=== PATIENT | male | born 1935 | race Caucasian/White ===

== ENCOUNTER 2017-01-19 18:21 | Inpatient (IN) | payer MEDICARE, OTHER ==
[~2017-01-19] VITALS: Ht 172.7 cm; Wt 76.5 kg
[2017-01-19] MEDS ORDERED: PRESCAP PO (18:42)
[2017-01-19] MEDS ORDERED: DIGO0.12 PO (18:42)
[2017-01-19] MEDS ORDERED: NITR0.4S14 SL (18:42)
[2017-01-19] MEDS ORDERED: COUM2.5T11 PO (18:42)
[2017-01-19] MEDS ORDERED: METR500T10 PO (18:42)
[2017-01-19] MEDS ORDERED: SIMV40TA2 PO (18:42)
[2017-01-19] MEDS ORDERED: PROSCAP PO (18:42)
[2017-01-19] MEDS ORDERED: imdur PO (18:42)
[2017-01-19] MEDS ORDERED: OMEP40CA2 PO (18:42)
[2017-01-19] MEDS ORDERED: MULT1TAB10 PO (18:42)
[2017-01-19] MEDS ORDERED: CIPR500T3 PO (18:42)
[2017-01-19] MEDS ORDERED: PRED5TA PO (18:42)
[2017-01-19] MEDS ORDERED: CORE25TA PO (18:42)
[2017-01-19] MEDS ORDERED: ADV250INH INH (18:42)
[2017-01-19] MEDS ORDERED: ONDANSETRON 4MG/2ML VIAL (J2405) IV ONE (19:15)
[2017-01-19] MEDS ORDERED: NS 500 ML IV ONE (19:15)
[2017-01-19] MEDS: MORPHINE 4 MG/ML 1ML SYRINGE IV PRN ×2 (19:33→20:05)
[2017-01-19 19:39] LABS: BASO % 0.3 % (0.0-1.0); EOS % 0.2 % (0.0-3.0); LARGE UNSTAINED CELL # 0.2 K/mm3 (0.0-0.4); LARGE UNSTAINED CELL % 2.1 % (0.0-4.0); LYMPH # 1.2 K/mm3 (1.5-4.5); LYMPH % 12.2 % (24.0-44.0); MEAN CORPUSCULAR VOLUME 103.1 fl (80.0-96.0); MONO # 0.4 K/mm3 (0.0-0.8); MONO % 4.2 % (0.0-5.0); NEUTROPHILS # 6.8 K/mm3 (1.8-7.7); NEUTROPHILS % 80.8 % (36.0-66.0); PLATELET COUNT, AUTOMATED 557 k/mm3 (150-450); RED CELL DISTRIBUTION WIDTH 15.2 % (11.5-14.5); WHITE BLOOD COUNT 8.5 K/mm3 (4.0-10.0)
[2017-01-19 20:01] LABS: ALBUMIN 3.4 GM/DL (3.2-5.2); ALBUMIN/GLOBULIN RATIO 0.92 (1.00-1.93); BILIRUBIN,DIRECT 0.3 MG/DL (0.0-0.2); BILIRUBIN,TOTAL 0.8 MG/DL (0.2-1.0); CALCIUM LEVEL 8.5 MG/DL (8.8-10.2); CREATININE FOR GFR 1.48 MG/DL (0.70-1.30); GLOMERULAR FILTRATION RATE 48.3 (>35); POTASSIUM SERUM 3.9 MEQ/L (3.5-5.1); TOTAL PROTEIN 7.1 GM/DL (6.4-8.2)
[2017-01-19] MEDS ORDERED: ISOVUE-370 76% 100ML VIAL (Q9967) As Ordered ONE (20:32)
--- NOTE | 2017-01-19 21:30 | REPUSA ---
CT of the abdomen and pelvis with contrast Clinical statement: Pain. Technique: Multiple axial CT images were obtained from the base of the lungs through the floor of the pelvis utilizing 5 mm axial slices after administration of nonionic intravenous contrast. Coronal an d sagittal reconstructions were also obtained. No comparison is available. Findings: Chest: The visualized lung bases are clear. Abdomen: The liver, spleen, pancreas, kidneys, and adrenal glands are unremarkable. There is a large simple left renal cyst, measuring 6.6 x 6.3 cm. The gallbladder is distended, with several tiny galls tones noted. The aorta demonstrates moderate atherosclerotic calcifications, but is otherwise within normal limits. There is no evidence of abdominal lymphadenopathy or ascites. Pelvis: There is no evidence of bowel obstruction. Mild bowel wall thickening with retained dense mat erial suspected to represent contrast is noted. No surrounding inflammatory changes are seen at the site. Extensive sigmoid diverticulosis is noted without acute inflammatory changes. The urinary bladd er is within normal limits. The other pelvic structures appear grossly intact. There is no evidence o f pelvic lymphadenopathy or ascites. Bones: There are no suspicious osseous abnormalities seen. Dextroscoliosis is noted, with the apex at T12/L1. Multilevel degenerative disc disease is noted throughout the lumbar spine. Impression: 1. No focal acute abnormality to explain the patient's pain. 2. Cholelithiasis without evidence of acute cholecystitis. 3. Large simple left renal cyst. No evidence of hydronephrosis. 4. Moderate atherosclerosis of the abdominal aorta without evidence of aneurysm or dissection. 5. Bowel wall thickening with retained contrast is seen within the cecum. This bowel wall thickening is nonspecific. Colonoscopy should be considered if not previously performed. 6. Diffuse sigmoid diverticulosis without evidence of diverticulitis. 7. Scoliosis with moderate spondylosis of the lumbar spine.
[2017-01-19] MEDS ORDERED: HYDROmorphone HCL 1 MG/ML SYRINGE (J1170) IV PRN (21:45)
[2017-01-19] MEDS ORDERED: ACETAMINOPHEN TAB 650MG DOSE (2X325MG) PO PRN (23:45)
[2017-01-19] MEDS ORDERED: OMEP20CA3 PO (23:50)
[2017-01-19] MEDS ORDERED: VITMTA PO (23:50)
[2017-01-19] MEDS ORDERED: SIMV20TA2 PO (23:50)
[2017-01-19] MEDS ORDERED: ISOS30TA4 PO (23:50)
[2017-01-19] MEDS ORDERED: CARV12.5 PO (23:51)
[2017-01-20 00:09] LABS: INR 2.65
[2017-01-20] MEDS: metroNIDAZOLE 500 MG in APPROPRIATE DILUENT 1 EA IV SCH ×3 (01:00→17:46)
--- NOTE | 2017-01-20 01:27 | HPE ---
DATE OF ADMISSION: 01/20/2017 PRIMARY CARE PROVIDER: Dr. Mckeon. CHIEF COMPLAINT: Vomiting and abdominal pain. HISTORY OF PRESENT ILLNESS: Mr. Paige is a pleasant 81-year-old male with past medical history of atrial fibrillation on Coumadin, diverticulitis, PMR on chronic steroid, who presented to the emergency department [facility] with complaint of emesis that started 2 days ago after waking up. He thinks he had probably about six episodes per day where he mostly either dry heaved or vomits up mucus. Associated with back pain that subsequently radiated to his right abdomen around the same time. Pain is described as "sick" feeling. Unable to keep anything down due to his nausea. Because of his symptom, he actually went to [facility] Emergency Room on 01/18/2017, had a CT abdomen and pelvis which showed diverticulitis. He was then sent home from the emergency department (ED) with Cipro and Flagyl. Unfortunately, his symptom worsened and later returned to their ED that evening. This time, because of his persistent symptom, he was admitted and was treated with intravenous (IV) Ciprofloxacin and Flagyl. Repeat CAT scan reportedly showed improvement of his diverticulitis. Because of improved symptoms, he was discharged this morning with oral antibiotics. However, upon return to his home, he started eating Jello and after taking his antibiotics, he immediately felt nauseous and vomited all of his food and medications. Thinks that provoking factors for his symptoms are by mouth antibiotics. Because of his persistent symptoms, he decided to come in [facility] for further evaluation. In the ED, had Morphine and reported improvement of symptom. Also had 500 mL bolus of normal saline. PAST MEDICAL HISTORY: 1. Atrial fibrillation on Coumadin. 2. Coronary artery disease (CAD) status post coronary artery bypass graft (CABG). 3. Hypertension. 4. PMR on chronic steroids. 5. Gastrointestinal (GI) bleed previously with Pradaxa, which has been stopped after switch to Coumadin. 6. Chronic obstructive pulmonary disease (COPD). PAST SURGICAL HISTORY: 1. CABG. 2. Colonoscopy 2012, was told that he had tortuous colon and benign polyps. 3. Tonsillectomy. 4. Appendectomy. 5. Cardiac catheterization with a stent placement in November 2016 due to abnormal echocardiogram. 6. Vasectomy. ALLERGIES: LISINOPRIL, cough. MEDICATIONS: - Zocor 20 mg nightly - Coreg 12.5 mg by mouth twice a day - Advair 250/50 inhaled twice a day - Imdur 30 mg daily - nitroglycerin as needed sublingually - prednisone 5 mg by mouth daily - Coumadin 2.5 mg daily - omeprazole 20 mg daily - multivitamin PreserVision two capsules by mouth twice a day - prostate pill two capsules by mouth daily - Cipro 500 one tablet by mouth twice a day for 10 days - Flagyl 500 three times a day for 10 days, started yesterday but could not continue due to his nausea and abdominal pain Patient previously was on digoxin, irbesartan, Ranexa, and famotidine, but medications were discontinued last week due to his worsening renal function. SOCIAL HISTORY: Patient is an ex-smoker, used to smoke for 30 pack years, quit 40 years ago. He drinks alcohol on very rare social occasions. No drug use. Currently lives at home with his , one dog. States that he has traveled almost to all of the states in the country. Worked as a business team leader, boiler technician. No asbestos or TB exposure. FAMILY HISTORY: Noncontributory due to advanced age. REVIEW OF SYSTEMS: CONSTITUTIONAL: Positive for subjective fevers, chills, decreased appetite, intermittent night sweats to his chest only, and 20-pound unintentional weight loss in the last 4 months due to decreased appetite. HENT: Denies headaches, lightheadedness, dizziness, difficulty with speech and swallow. EYES: Denies blurry vision, diplopia. CARDIOVASCULAR: Denies chest pain, paroxysmal nocturnal dyspnea, pillow orthopnea, lower extremity edema. PULMONARY: Denies shortness of breath, productive cough, hemoptysis. GASTROINTESTINAL: As mentioned above. GENITOURINARY: No dysuria, frequency or hematuria. MUSCULOSKELETAL: No bone, muscle, joint pain. NEUROLOGICAL: No paralysis, paresthesia, headaches. ENDOCRINE: Negative for diabetes, or thyroid disease. LYMPHATICS: No lumps, bumps, or swelling anywhere in neck, axilla, or groin. HEMATOLOGY: No abnormal bleeding or bruising. SKIN: Positive for thin skin and easily bruising from steroid and Coumadin. PSYCHIATRIC: Negative for anxiety or depression. PHYSICAL EXAMINATION: VITAL SIGNS: Blood pressure 134/61, heart rate 86, temperature 98.5, respiration rate 18, pulse oximetry 95% on room air. GENERAL: Patient is lying in bed 45-degree angle, comfortable, no acute distress. Alert, awake, oriented times three, pleasant and cooperative. Family at bedside. Appears stated age. HENT: Normocephalic, atraumatic. Moist oral mucosa. No thrush or lesions appreciated. Dentures in place. EYES: Extraocular movements intact, pupils equal and reactive to light. NECK: Supple. Trachea midline. No jugular venous distention (JVD). CHEST: Symmetric chest rise. No accessory muscle use. Breath sounds were diminished, but clear bilaterally. HEART: Irregular, but not tachycardic. Variable S1 and S2. ABDOMEN: Soft, mildly tender to palpation bilateral lower quadrants but no guarding. No rebound. No peritoneal sign. Bowel sounds normoactive. BACK: No costovertebral angle (CVA) tenderness. EXTREMITIES: No pedal edema. Pedal pulses present bilaterally. SKIN: He has paper thin skin likely secondary from chronic steroids. Also abrasions on his upper extremities reportedly is from recent removal of his IV line for other hospitalizations. PSYCHIATRIC: Pleasant, cooperative. NEUROLOGIC: No focal deficits appreciated. LABORATORY DATA: WBC 8.5, hemoglobin 9.8, hematocrit 29.8, platelets 557, neutrophils 80.8. Sodium 137, potassium 3.9, chloride 108, carbon dioxide 19, BUN 22, creatinine 1.48. The patient at baseline denies a history of kidney problems. Fasting glucose 125, calcium 8.5, total bilirubin 0.8, direct bilirubin 0.3, AST 33, ALT 26, alkaline phosphatase 90. CRP 1.34. Lipase 252. Blood cultures pending. CT abdomen and pelvis official report shows no focal acute abnormality, cholelithiasis without evidence of acute cholecystitis, large simple left renal cyst, no hydronephrosis, moderate atherosclerosis of abdominal aorta without evidence of aneurysm, dissection, however, independent review appears to show some mucosa thickening by sigmoid colon. IMPRESSION AND PLAN: Mr. Paige is an 81-year-old male with past medical history of atrial fibrillation on Coumadin, PMR, presented with abdominal pain and nausea. 1. Emesis and abdominal pain. Suspect acute diverticulitis. Patient recently failed outpatient therapy. Because he had persistent nausea even with clear diet, Jeromy, for now will keep him nothing by mouth and diet can be advanced as tolerated tomorrow. Start Cipro and Flagyl. Supportive with pain control. He will be started on intravenous (IV) fluid with maintenance therapy. Will also check lactic acid to rule out ischemic cause of his pain. Check cardiac marker to rule out cardiac cause of his symptoms due to his extensive cardiac history, though suspect that it is unlikely. The patient's most recent colonoscopy was 2012 and at that time reportedly showed polyps. 2. Acute kidney injury (JAGDISH). Per patient, he does not have a history of kidney disease. Recently his digoxin, irbesartan were discontinued outpatient due to his worsening renal function. Will check urinalysis. He is currently not on any nephrotoxic medication. Will start him with gentle hydration 1 liter and reassess his labs in the morning. His renal function was likely secondary to dehydration and medication use. 3. Atrial fibrillation. Currently rate controlled. Continue home dose Coreg 12.5 mg by mouth twice a day. Dose was recently decreased from 25 mg twice a day outpatient last week. Digoxin was recently discontinued. Will need to monitor him closely. Continue his Coumadin dose. Check PT/INR and EKG. 4. Anemia, etiology unclear. It is unclear what his baseline hemoglobin level is. Will check iron studies and repeat labs in the morning. 5. Coronary artery disease (CAD) status post coronary artery bypass graft (CABG). Continue home dose Zocor, beta oma. 6. PMR. He takes prednisone 5 mg daily. Continue medication. No stress dose needed at this time. 7. Hypertension. Continue Imdur 30 mg daily and Coreg. 8. Gastroesophageal reflux disease (GERD). Continue home dose Prilosec 20 mg daily. 9. Weight loss. He reports unintentional 20 pounds weight loss in the last 4 months. Recommend that this be further investigated outpatient by his PCP. 10. Deep venous thrombosis (DVT) prophylaxis. Sequential compression devices (SCDs), thromboembolism deterrent stockings (TEDS) and on Coumadin for atrial fibrillation. INR will be checked. DISPOSITION: Due to the patient's condition, we expect his stay to be greater than two midnights. My preceptor for this patient encounter was Dr. Rekha Ulloa. The preceptor was physically present in the building during the encounter and was fully available as needed. All aspects of the patient interview, examination, medical decision making process, and medical care plan development were reviewed and approved by the preceptor. The preceptor is aware and concurs with the plan as stated in the body of this note and will attest to such by his/her co-signature. cc: Dr. Mike URBINA
[2017-01-20] MEDS ORDERED: NS 1,000 ML IV SCH (01:30)
[2017-01-20 01:45] VITALS: BP 160/70
[2017-01-20] MEDS: CIPROFLOXACIN 200 MG in APPROPRIATE DILUENT 1 EA IV SCH ×2 (02:58→14:05)
[2017-01-20 05:16] LABS: MEAN CORPUSCULAR HEMOGLOBIN 34.8 pg (27.0-33.0); MEAN CORPUSCULAR HGB CONC 33.6 g/dl (32.0-36.5); MEAN CORPUSCULAR VOLUME 103.6 fl (80.0-96.0); RED CELL DISTRIBUTION WIDTH 14.9 % (11.5-14.5); WHITE BLOOD COUNT 8.4 K/mm3 (4.0-10.0)
[2017-01-20 05:31] LABS: INR 2.95
[2017-01-20 05:48] LABS: ALBUMIN 2.8 GM/DL (3.2-5.2); CALCIUM LEVEL 7.6 MG/DL (8.8-10.2); CREATININE FOR GFR 1.24 MG/DL (0.70-1.30); GLOMERULAR FILTRATION RATE 59.3 (>35); PHOSPHORUS LEVEL 2.7 MG/DL (2.5-4.9)
[2017-01-20 06:00] VITALS: BP 130/63
[2017-01-20] MEDS: ADVAIR DISKUS 250/50 INH PWD INH SCH ×2 (08:15→20:39)
[2017-01-20] MEDS: OMEPRAZOLE 20 MG CAP PO SCH (09:12)
[2017-01-20] MEDS: SIMVASTATIN 20 MG TAB PO SCH (09:13)
[2017-01-20] MEDS: MULTIVITAMINS/MINERALS THERAP 1 TAB PO SCH (09:13)
[2017-01-20] MEDS: CARVedilol 12.5 MG TAB PO SCH ×2 (09:13→21:06)
[2017-01-20] MEDS: predniSONE 5 MG TAB PO SCH (09:13)
[2017-01-20] MEDS: ISOSORBIDE MON. (IMDUR) 30 MG XR TAB PO SCH (09:14)
--- NOTE | 2017-01-20 09:20 | IPNPDOC ---
Subjective Date Seen The patient was seen on 01/20/17. Subjective Chief Complaint/HPI The patient is a 81-year-old male admitted with a reason for visit of Diverticulitis. General: Denies: Chills, Fatigue, Malaise, Night Sweats, Normal Appetite, Other Symptoms, ROS Unobtainable Constitutional: Denies: Chills, Fatigue, Fever, Lethargy, Malaise, Night Sweats , Other, Weakness, Weight Loss Eyes: Denies: Conjunctivae inflammation, Eyelid inflammation, Other, Pain, Redness, Vision change ENT: Denies: Dysphagia, Ear Pain, Epistaxis, Head Aches, Other Symptoms, Post Nasal Drip, Sinus Congestion, Sore Throat Skin: Denies: Breakdown, Bruising, Dry, Itching, Jaundice, Lesions, Nail Changes, Other, Rash Pulmonary: Denies: Cough, Dyspnea, Other Symptoms, Pleuritic Chest Pain Cardiovascular: Denies: Chest Pain, Edema, Lt Headedness, Orthopnea, Other Symptoms, Palpitations, Paroxysmal Noc. Dyspnea Gastrointestinal: Denies: Abdominal Pain, Constipation, Diarrhea, Hematochezia , Melena, Nausea, Other Symptoms, Vomiting Genitourinary: Denies: Dysuria, Frequency, Hematuria, Incontinence, Other Symptoms, Retention Objective Physical Examination General Exam: Positive: Alert, Cooperative, No Acute Distress Eye Exam: Positive: Conjunctiva & lids normal, EOMI, PERRLA, Negative: Sclera icteric ENT Exam: Positive: Atraumatic, Mucous membr. moist/pink Neck Exam: Positive: Supple Chest Exam: Positive: Clear to auscultation, Normal air movement Heart Exam: Positive: Irregular Rhythm, Rate Normal Abdomen Exam: Positive: Normal bowel sounds, Soft, Negative: Tenderness Psych Exam: Positive: Oriented x 3 Assessment /Plan Problems (1) Diverticulitis Status: Acute Problem Specific Plan: Monitor Clinically, Repeat Labs Problem Text: failed outpatient therapy - nausea with CLD continue npo cipro/flagyl IV some concern for cardiac etiology - serial cardiac markers - NTD (2) CAD (coronary artery disease) Status: Chronic Discussed With: Patient Problem Specific Plan: Monitor Clinically Problem Text: S/P CABG Continue coreg, zocor, imdur some concern for ACS - serial cardiac markers (3) HTN (hypertension) Status: Chronic Discussed With: Patient Problem Specific Plan: Monitor Clinically Problem Text: continue coreg, imdur (4) PMR (polymyalgia rheumatica) Status: Chronic Discussed With: Patient Problem Specific Plan: Monitor Clinically Problem Text: chronic steroids - prednisone 5mg daily continue omeprazole (5) COPD (chronic obstructive pulmonary disease) Status: Chronic Discussed With: Patient Problem Specific Plan: Monitor Clinically Problem Text: Continue respiratory regimen. (6) Afib Status: Chronic Discussed With: Patient Problem Specific Plan: Monitor Clinically Problem Text: rate controlled continue coumadin for anticoagulatin - inr therapeutic history of gi bleed while on pradaxa digoxin recently discontinued Plan/VTE VTE Prophylaxis Ordered?: Yes (coumadin) Plan IVF: Continue Diet: Make NPO, Continue Current Activity: Continue Current Therapy: PT, OT Medications: Start Antibiotics Diagnostics: Repeat Labs in AM VS[facility] I&O[facility]O Vital Signs Date Time Temp Pulse Resp B/P Pulse Ox O2 Delivery O2 Flow Rate FiO2 01/20/17 06:00 97.7 69 19 130/63 99 Nasal Cannula 2.0 I&O- Last 24 Hours up to 6 AM 01/20/17 06:00 Intake Total 0 ml Output Total 150 ml Balance -150 ml Laboratory Data 24H LABS Laboratory Tests 2 01/19/17 19:29: Prothromb Time International Ratio 2.65, Prothrombin Time 28.3H 01/19/17 19:30: Aspartate Amino Transf (AST/SGOT) 33, Alanine Aminotransferase (ALT/SGPT) 26, Alkaline Phosphatase 90, Total Bilirubin 0.8, Direct Bilirubin 0.3H, Albumin 3.4 , Albumin/Globulin Ratio 0.92L, Anion Gap 10, White Blood Count 8.5, Red Blood Count 2.89L, Hemoglobin 9.8L, Hematocrit 29.8L, Mean Corpuscular Volume 103.1H, Mean Corpuscular Hemoglobin 34.0H, Mean Corpuscular Hemoglobin Concent 33.0, Red Cell Distribution Width 15.2H, Platelet Count 557H, Neutrophils (%) (Auto) 80.8H, Lymphocytes (%) (Auto) 12.2L, Monocytes (%) (Auto) 4.2, Eosinophils (%) ( Auto) 0.2, Basophils (%) (Auto) 0.3, Neutrophils # (Auto) 6.8, Lymphocytes # ( Auto) 1.2L, Monocytes # (Auto) 0.4, Eosinophils # (Auto) 0.0, Basophils # (Auto ) 0.0, C-Reactive Protein, Quantitative 1.34H, Calcium Level 8.5L, Glomerular Filtration Rate 48.3, Large Unclassified Cells # 0.2, Large Unclassified Cells % 2.1, Lipase 252, Total Protein 7.1 01/20/17 04:54: Prothromb Time International Ratio 2.95, Prothrombin Time 30.8H, Albumin 2.8L, Anion Gap 9, Calcium Level 7.6L, Glomerular Filtration Rate 59.3, Blood Urea Nitrogen 17, Creatinine 1.24, Sodium Level 141, Potassium Level 4.0, Chloride Level 110H, Carbon Dioxide Level 22, Ferritin 292, Iron Level 71, Phosphorus Level 2.7, Total Iron Binding Capacity 197L, Transferrin % Saturation 36.0 01/20/17 05:34: Creatine Kinase MB 4.1H, Creatine Kinase MB Relative Index 2.97, Lactic Acid Level 0.9, Total Creatine Kinase 138, Troponin I 0.05 CBC/BMP Laboratory Tests 01/19/17 19:30 Red Blood Count 2.89 L, Mean Corpuscular Volume 103.1 H, Mean Corpuscular Hemoglobin 34.0 H, Mean Corpuscular Hemoglobin Concent 33.0, Red Cell Distribution Width 15.2 H, Neutrophils (%) (Auto) 80.8 H, Lymphocytes (%) (Auto ) 12.2 L, Monocytes (%) (Auto) 4.2, Eosinophils (%) (Auto) 0.2, Basophils (%) ( Auto) 0.3, Neutrophils # (Auto) 6.8, Lymphocytes # (Auto) 1.2 L, Monocytes # ( Auto) 0.4, Eosinophils # (Auto) 0.0, Basophils # (Auto) 0.0 01/20/17 04:54 Red Blood Count 2.56 L, Mean Corpuscular Volume 103.6 H, Mean Corpuscular Hemoglobin 34.8 H, Mean Corpuscular Hemoglobin Concent 33.6, Red Cell Distribution Width 14.9 H, Anion Gap 9 Microbiology Microbiology 01/19/17 Blood Culture, Received Pending 01/19/17 Blood Culture, Received Pending ALEXANDRA CARY MD Jan 20, 2017 09:20
[2017-01-20 14:00] VITALS: BP 128/58
[2017-01-20] MEDS ORDERED: WARFARIN SOD 2.5 MG TAB PO SCH (17:00)
[2017-01-20 22:00] VITALS: BP 141/63
[2017-01-21] MEDS: metroNIDAZOLE 500 MG in APPROPRIATE DILUENT 1 EA IV SCH ×3 (00:56→16:11)
[2017-01-21] MEDS: CIPROFLOXACIN 200 MG in APPROPRIATE DILUENT 1 EA IV SCH ×2 (02:34→13:58)
[2017-01-21 06:00] VITALS: BP 125/58
[2017-01-21 06:24] LABS: INR 3.29
[2017-01-21 06:38] LABS: ALBUMIN 2.8 GM/DL (3.2-5.2); ANION GAP 7 MEQ/L (8-16); BLOOD UREA NITROGEN 13 MG/DL (7-18); CALCIUM LEVEL 8.1 MG/DL (8.8-10.2); CARBON DIOXIDE LEVEL 23 MEQ/L (21-32); CHLORIDE LEVEL 112 MEQ/L (98-107); CREATININE FOR GFR 1.14 MG/DL (0.70-1.30); GLOMERULAR FILTRATION RATE > 60.0 (>35); GLUCOSE, FASTING 95 MG/DL (83-110); PHOSPHORUS LEVEL 2.1 MG/DL (2.5-4.9); SODIUM LEVEL 142 MEQ/L (136-145)
[2017-01-21 06:50] LABS: MEAN CORPUSCULAR HEMOGLOBIN 34.5 pg (27.0-33.0); MEAN CORPUSCULAR VOLUME 104.5 fl (80.0-96.0); RED CELL DISTRIBUTION WIDTH 15.5 % (11.5-14.5); WHITE BLOOD COUNT 7.6 K/mm3 (4.0-10.0)
[2017-01-21] MEDS: ADVAIR DISKUS 250/50 INH PWD INH SCH ×2 (08:15→21:00)
--- NOTE | 2017-01-21 08:28 | IPNPDOC ---
Subjective Date Seen The patient was seen on 01/21/17. Subjective Chief Complaint/HPI The patient is a 81-year-old male admitted with a reason for visit of Diverticulitis. General: Denies: Chills, Fatigue, Malaise, Night Sweats, Normal Appetite, Other Symptoms, ROS Unobtainable Constitutional: Denies: Chills, Fatigue, Fever, Lethargy, Malaise, Night Sweats , Other, Weakness, Weight Loss Eyes: Denies: Conjunctivae inflammation, Eyelid inflammation, Other, Pain, Redness, Vision change ENT: Denies: Dysphagia, Ear Pain, Epistaxis, Head Aches, Other Symptoms, Post Nasal Drip, Sinus Congestion, Sore Throat Skin: Denies: Breakdown, Bruising, Dry, Itching, Jaundice, Lesions, Nail Changes, Other, Rash Pulmonary: Denies: Cough, Dyspnea, Other Symptoms, Pleuritic Chest Pain Cardiovascular: Denies: Chest Pain, Edema, Lt Headedness, Orthopnea, Other Symptoms, Palpitations, Paroxysmal Noc. Dyspnea Gastrointestinal: Denies: Abdominal Pain, Constipation, Diarrhea, Hematochezia , Melena, Nausea, Other Symptoms, Vomiting Genitourinary: Denies: Dysuria, Frequency, Hematuria, Incontinence, Other Symptoms, Retention Objective Physical Examination General Exam: Positive: Alert, Cooperative, No Acute Distress Eye Exam: Positive: Conjunctiva & lids normal, EOMI, PERRLA, Negative: Sclera icteric ENT Exam: Positive: Atraumatic, Mucous membr. moist/pink Neck Exam: Positive: Supple Chest Exam: Positive: Clear to auscultation, Normal air movement Heart Exam: Positive: Irregular Rhythm, Rate Normal Abdomen Exam: Positive: Normal bowel sounds, Soft, Negative: Tenderness Extremity Exam: Negative: Edema Psych Exam: Positive: Oriented x 3 Assessment /Plan Problems (1) Diverticulitis Status: Acute Problem Specific Plan: Monitor Clinically, Repeat Labs Problem Text: failed outpatient therapy - still had abd pain/nausea with CLD cipro/flagyl IV some concern for cardiac etiology - serial cardiac markers - negative for acs advance to clear liquid diet today (2) CAD (coronary artery disease) Status: Chronic Discussed With: Patient Problem Specific Plan: Monitor Clinically Problem Text: S/P CABG Continue coreg, zocor, imdur (3) HTN (hypertension) Status: Chronic Discussed With: Patient Problem Specific Plan: Monitor Clinically Problem Text: continue coreg, imdur (4) PMR (polymyalgia rheumatica) Status: Chronic Discussed With: Patient Problem Specific Plan: Monitor Clinically Problem Text: chronic steroids - prednisone 5mg daily continue omeprazole (5) COPD (chronic obstructive pulmonary disease) Status: Chronic Discussed With: Patient Problem Specific Plan: Monitor Clinically Problem Text: Continue respiratory regimen. (6) Afib Status: Chronic Discussed With: Patient Problem Specific Plan: Monitor Clinically Problem Text: rate controlled continue coumadin for anticoagulatin - inr therapeutic history of gi bleed while on pradaxa digoxin recently discontinued Plan/VTE VTE Prophylaxis Ordered?: Yes (coumadin) Plan IVF: Continue Diet: Advance Activity: Continue Current Medications: Start Antibiotics Diagnostics: Repeat Labs in AM Advancing to clear liquid diet today. Continue IV Cipro/flagyl. Warfarin on hold for supratherapeutic INR. VS, I&O, 24H, Fishbone Vital Signs/I&O Vital Signs Date Time Temp Pulse Resp B/P Pulse Ox O2 Delivery O2 Flow Rate FiO2 01/21/17 06:00 97.3 65 20 125/58 99 Room Air 01/20/17 06:00 2.0 I&O- Last 24 Hours up to 6 AM 01/21/17 06:00 Intake Total 1600 ml Output Total 1500 ml Balance 100 ml Laboratory Data 24H LABS Laboratory Tests 2 01/20/17 13:41: Creatine Kinase MB 5.2H, Creatine Kinase MB Relative Index 3.58, Total Creatine Kinase 145, Troponin I 0.04 01/20/17 20:57: Creatine Kinase MB 4.1H, Creatine Kinase MB Relative Index 3.15, Total Creatine Kinase 130, Troponin I 0.03# 01/21/17 05:52: Albumin 2.8L, Blood Urea Nitrogen 13, Creatinine 1.14, Sodium Level 142, Potassium Level 4.0, Chloride Level 112H, Carbon Dioxide Level 23, Anion Gap 7L , Calcium Level 8.1L, Glomerular Filtration Rate > 60.0, Phosphorus Level 2.1#L , Prothromb Time International Ratio 3.29, Prothrombin Time 33.5H CBC/BMP Laboratory Tests 01/21/17 05:52 Anion Gap 7 L, Red Blood Count 2.64 L, Mean Corpuscular Volume 104.5 H, Mean Corpuscular Hemoglobin 34.5 H, Mean Corpuscular Hemoglobin Concent 33.0, Red Cell Distribution Width 15.5 H Microbiology Microbiology 01/19/17 Blood Culture - Preliminary, Resulted No growth after 24 hours . All specim... 01/19/17 Blood Culture - Preliminary, Resulted No growth after 24 hours . All specim... ALEXANDRA CARY MD Jan 21, 2017 08:28
[2017-01-21] MEDS: MULTIVITAMINS/MINERALS THERAP 1 TAB PO SCH (08:29)
[2017-01-21] MEDS: OMEPRAZOLE 20 MG CAP PO SCH (08:29)
[2017-01-21] MEDS: SIMVASTATIN 20 MG TAB PO SCH (08:29)
[2017-01-21] MEDS: predniSONE 5 MG TAB PO SCH (08:29)
[2017-01-21] MEDS: CARVedilol 12.5 MG TAB PO SCH ×2 (08:33→20:25)
[2017-01-21] MEDS: ISOSORBIDE MON. (IMDUR) 30 MG XR TAB PO SCH (08:33)
[2017-01-21] MEDS: ONDANSETRON 4 MG TAB (S0181) PO PRN (10:47)
[2017-01-21] MEDS: MORPHINE 2 MG/ML 1ML SYRINGE IV PRN ×2 (11:09→15:47)
[2017-01-21] MEDS ORDERED: MORPHINE 2 MG/ML 1ML SYRINGE IV ONE (11:45)
[2017-01-21] MEDS: NS 1,000 ML IV SCH (12:15)
[2017-01-21] MEDS ORDERED: HYDROmorphone HCL 1 MG/ML SYRINGE (J1170) IV ONE (12:15)
[2017-01-21 14:00] VITALS: BP 150/78
[2017-01-21 22:00] VITALS: BP 145/65
[2017-01-22] MEDS: metroNIDAZOLE 500 MG in APPROPRIATE DILUENT 1 EA IV SCH ×3 (00:29→17:53)
[2017-01-22] MEDS: NS 1,000 ML IV SCH ×2 (01:39→17:53)
[2017-01-22] MEDS: CIPROFLOXACIN 200 MG in APPROPRIATE DILUENT 1 EA IV SCH ×2 (01:39→15:05)
--- NOTE | 2017-01-22 05:44 | ECGEPIP ---
Stationary ECG Study [facility] - ED Test Date: 2017-01-19 Pat Name: ADAMS VALLE Department: Room: [place] [address] Gender: M Senior Telecommunications Engineer: gilberto : 1935 Requested By: CHUNG Aceves Order Number: [id number] Reading MD: Liang Avery Measurements Intervals [place] Rate: 87 P: [place]: 0 QRS: 64 QRSD: 98 T: 40 QT: 352 QTc: 425 Interpretive Statements ATRIAL FIBRILLATION WITH VENTRICULAR PREMATURE COMPLEXES MODERATE ST DEPRESSION NO PRIORS Electronically Signed On 01-22-2017 5:44:05 EDT by Liang Avery
[2017-01-22 06:00] VITALS: BP 127/59
[2017-01-22 06:10] LABS: MEAN CORPUSCULAR HEMOGLOBIN 34.4 pg (27.0-33.0); MEAN CORPUSCULAR HGB CONC 32.7 g/dl (32.0-36.5); RED CELL DISTRIBUTION WIDTH 15.6 % (11.5-14.5); WHITE BLOOD COUNT 8.3 K/mm3 (4.0-10.0)
[2017-01-22 06:16] LABS: INR 3.41
[2017-01-22 06:22] LABS: ALBUMIN 2.7 GM/DL (3.2-5.2); ANION GAP 9 MEQ/L (8-16); BLOOD UREA NITROGEN 15 MG/DL (7-18); CARBON DIOXIDE LEVEL 23 MEQ/L (21-32); CHLORIDE LEVEL 111 MEQ/L (98-107); CREATININE FOR GFR 1.06 MG/DL (0.70-1.30); GLOMERULAR FILTRATION RATE > 60.0 (>35); GLUCOSE, FASTING 98 MG/DL (83-110); PHOSPHORUS LEVEL 1.9 MG/DL (2.5-4.9); POTASSIUM SERUM 3.6 MEQ/L (3.5-5.1); SODIUM LEVEL 143 MEQ/L (136-145)
[2017-01-22] MEDS: ADVAIR DISKUS 250/50 INH PWD INH SCH ×2 (07:40→21:17)
[2017-01-22] MEDS: predniSONE 5 MG TAB PO SCH (10:10)
[2017-01-22] MEDS: CARVedilol 12.5 MG TAB PO SCH ×2 (10:10→21:00)
[2017-01-22] MEDS: OMEPRAZOLE 20 MG CAP PO SCH (10:10)
[2017-01-22] MEDS: SIMVASTATIN 20 MG TAB PO SCH (10:10)
[2017-01-22] MEDS: MULTIVITAMINS/MINERALS THERAP 1 TAB PO SCH (10:11)
[2017-01-22] MEDS: ISOSORBIDE MON. (IMDUR) 30 MG XR TAB PO SCH (10:11)
[2017-01-22] MEDS: ONDANSETRON 4 MG TAB (S0181) PO PRN (11:37)
[2017-01-22] MEDS: MORPHINE 2 MG/ML 1ML SYRINGE IV PRN (11:38)
[2017-01-22 14:00] VITALS: BP 150/60
[2017-01-22] MEDS ORDERED: HYDROmorphone HCL 1 MG/ML SYRINGE (J1170) As Ordered ONE (14:54)
[2017-01-22] MEDS ORDERED: HYDROmorphone HCL 1 MG/ML SYRINGE (J1170) IV ONE (15:00)
--- NOTE | 2017-01-22 16:09 | IPNPDOC ---
Subjective Date Seen The patient was seen on 01/22/17. Subjective Chief Complaint/HPI The patient is a 81-year-old male admitted with a reason for visit of Diverticulitis. Events since last encounter pt seen and examined, still having a lot of abd pain, worse over right lower quadrant, no fevers or chills, per pt he had one episode of vomiting yesterday when he was started on a liquid diet so it was discontinued and he was made NPO again. Objective Physical Examination General Exam: Positive: Alert, Cooperative, No Acute Distress Eye Exam: Positive: Conjunctiva & lids normal, EOMI, PERRLA, Negative: Sclera icteric ENT Exam: Positive: Atraumatic, Mucous membr. moist/pink Neck Exam: Positive: Supple Chest Exam: Positive: Clear to auscultation, Normal air movement Heart Exam: Positive: Irregular Rhythm, Rate Normal Abdomen Exam: Positive: Normal bowel sounds, Soft, Tenderness Extremity Exam: Negative: Edema Psych Exam: Positive: Oriented x 3 Assessment /Plan Problems (1) Diverticulitis Status: Resolved Problem Specific Plan: Monitor Clinically, Repeat Labs Problem Text: * per our CT scan pt has no evidence of diverticulitis only diverticulosis * failed outpatient therapy -he was hospitalized in another facility for IV antibiotics then discharge on oral antibiotics once his symptoms resolved, still had abd pain/nausea with CLD * cipro/flagyl IV * some concern for cardiac etiology - serial cardiac markers - negative for acs * will order KUB, will consult surgery * Pt states only IV Dilaudid can alleviate his symptoms, will order one time dose (2) CAD (coronary artery disease) Status: Chronic Discussed With: Patient Problem Specific Plan: Monitor Clinically Problem Text: S/P CABG Continue coreg, zocor, imdur (3) HTN (hypertension) Status: Chronic Discussed With: Patient Problem Specific Plan: Monitor Clinically Problem Text: continue coreg, imdur (4) PMR (polymyalgia rheumatica) Status: Chronic Discussed With: Patient Problem Specific Plan: Monitor Clinically Problem Text: chronic steroids - prednisone 5mg daily continue omeprazole (5) COPD (chronic obstructive pulmonary disease) Status: Chronic Discussed With: Patient Problem Specific Plan: Monitor Clinically Problem Text: Continue respiratory regimen. (6) Afib Status: Chronic Discussed With: Patient Problem Specific Plan: Monitor Clinically Problem Text: rate controlled continue coumadin for anticoagulatin - inr 3.4 will hold dose today history of gi bleed while on pradaxa digoxin recently discontinued Plan/VTE VTE Prophylaxis Ordered?: Yes (coumadin) Plan IVF: Continue Diet: Advance Activity: Continue Current Medications: Start Antibiotics Diagnostics: Repeat Labs in AM VS, I&O, 24H, Fishbone Vital Signs/I&O Vital Signs Date Time Temp Pulse Resp B/P Pulse Ox O2 Delivery O2 Flow Rate FiO2 01/22/17 15:05 16 Room Air 01/22/17 14:00 98.4 73 150/60 99 01/20/17 06:00 2.0 I&O- Last 24 Hours up to 6 AM 01/22/17 06:00 Intake Total 1790 ml Output Total 600 ml Balance 1190 ml Laboratory Data 24H LABS Laboratory Tests 2 01/22/17 05:31: Albumin 2.7L, Blood Urea Nitrogen 15, Creatinine 1.06, Sodium Level 143, Potassium Level 3.6, Chloride Level 111H, Carbon Dioxide Level 23, Anion Gap 9, Calcium Level 8.0L, Glomerular Filtration Rate > 60.0, Phosphorus Level 1.9L, Prothromb Time International Ratio 3.41, Prothrombin Time 34.4H 01/22/17 06:15: Urine Amorphous Sediment , Urine Appearance CLEAR, Urine Color INDERJIT, Urine pH 5.0, Urine Specific Brady 1.018, Urine Protein NEGATIVE, Urine Glucose (UA) NEGATIVE, Urine Ketones TRACEH, Urine Urobilinogen 0.2, Urine Bilirubin NEGATIVE , Urine Leukocyte Esterase TRACEH, Urine Bacteria (Auto) NEGATIVE, Urine Blood NEGATIVE, Urine Calcium Carbonate Cryst(Auto) , Urine Calcium Oxalate Cryst ( Auto) , Urine Calcium Phosphate Tiny (Auto) , Urine Cellular Casts , Urine Cystine Crystals , Urine Granular Casts (Auto) , Urine Hyaline Casts (Auto) 1, Urine Leucine Crystals , Urine Mucus (Auto) SMALL, Urine Nitrite NEGATIVE, Urine Oval Fat Bodies (Auto) , Urine RBC (Auto) 2, Urine Renal Epithelial Cells , Urine Sperm (Auto) , Urine Squamous Epithelial Cells 0, Urine Transitional Epithelial Cells , Urine Trichomonas (Auto) , Urine Triple Phosphate Cryst (Auto ) , Urine Tyrosine Crystals , Urine Uric Acid Crystals (Auto) , Urine WBC (Auto ) 2, Urine Waxy Casts (Auto) , Urine Yeast-Like Cells (Auto) CBC/BMP Laboratory Tests 01/22/17 05:31 Anion Gap 9, Red Blood Count 2.38 L, Mean Corpuscular Volume 105.0 H, Mean Corpuscular Hemoglobin 34.4 H, Mean Corpuscular Hemoglobin Concent 32.7, Red Cell Distribution Width 15.6 H Microbiology Microbiology 01/19/17 Blood Culture - Preliminary, Resulted No Growth after 48 hours. All Specime... 01/19/17 Blood Culture - Preliminary, Resulted No Growth after 48 hours. All Specime... LIZETTE DOOLEY DO Jan 22, 2017 16:09
--- NOTE | 2017-01-22 16:31 | REP ---
SUPINE ABDOMEN: 01/22/2017: Clinical history: Abdominal pain. Comparison CT abdomen pelvis 01/19/2017. Findings: Two supine views of the abdomen are provided. There are no abnormal dilated loops with gas scattered in the colon and small bowel loops in the abdomen and pelvis. Calcified granulomas in the left upper quadrant are in the spleen. There is a dextrorotatory curve of the thoracolumbar junction and degenerative disc and facet changes in the lower lumbar spine. Marginal osteophytes throughout. SI joints intact. Some calcifications aortoiliac vessels noted and no definite stone over the renal fossae. Impression: 1. Nonspecific gas pattern without obstruction, mass or free air. 2. Left upper quadrant calcifications consistent with granulomatous changes of the spleen noted on 3 days ago. 3. A dextrorotatory scoliosis thoracolumbar junction and degenerative disc and facet changes. Signed by Michael Buchanan MD 01/22/2017 05:24 P
[2017-01-22 22:00] VITALS: BP 119/63
[2017-01-23] MEDS: metroNIDAZOLE 500 MG in APPROPRIATE DILUENT 1 EA IV SCH ×3 (00:20→17:55)
[2017-01-23] MEDS: CIPROFLOXACIN 200 MG in APPROPRIATE DILUENT 1 EA IV SCH ×2 (02:07→15:24)
[2017-01-23] MEDS: NS 1,000 ML IV SCH ×2 (05:40→17:45)
[2017-01-23 06:00] VITALS: BP 136/63
[2017-01-23 07:09] LABS: MEAN CORPUSCULAR HEMOGLOBIN 33.9 pg (27.0-33.0); MEAN CORPUSCULAR HGB CONC 32.9 g/dl (32.0-36.5); RED CELL DISTRIBUTION WIDTH 15.6 % (11.5-14.5); WHITE BLOOD COUNT 8.6 K/mm3 (4.0-10.0)
[2017-01-23] MEDS: ADVAIR DISKUS 250/50 INH PWD INH SCH ×2 (07:11→21:17)
[2017-01-23 07:13] LABS: INR 3.23
[2017-01-23 07:24] LABS: ANION GAP 8 MEQ/L (8-16); BLOOD UREA NITROGEN 15 MG/DL (7-18); CALCIUM LEVEL 7.9 MG/DL (8.8-10.2); CARBON DIOXIDE LEVEL 23 MEQ/L (21-32); CHLORIDE LEVEL 110 MEQ/L (98-107); CREATININE FOR GFR 1.17 MG/DL (0.70-1.30); GLOMERULAR FILTRATION RATE > 60.0 (>35); GLUCOSE, FASTING 97 MG/DL (83-110); PHOSPHORUS LEVEL 1.9 MG/DL (2.5-4.9); POTASSIUM SERUM 3.5 MEQ/L (3.5-5.1); SODIUM LEVEL 141 MEQ/L (136-145)
[2017-01-23] MEDS: MORPHINE 2 MG/ML 1ML SYRINGE IV PRN (08:05)
[2017-01-23] MEDS: CARVedilol 12.5 MG TAB PO SCH ×2 (08:30→21:24)
[2017-01-23] MEDS: MULTIVITAMINS/MINERALS THERAP 1 TAB PO SCH (08:31)
[2017-01-23] MEDS: predniSONE 5 MG TAB PO SCH (08:31)
[2017-01-23] MEDS: SIMVASTATIN 20 MG TAB PO SCH (08:31)
[2017-01-23] MEDS: ISOSORBIDE MON. (IMDUR) 30 MG XR TAB PO SCH (08:31)
[2017-01-23] MEDS: OMEPRAZOLE 20 MG CAP PO SCH (08:31)
--- NOTE | 2017-01-23 09:28 | REP ---
REASON FOR EXAM: Abdominal pain. COMPARISON: None. Multiple ultrasonographic images of the liver show diffuse increased echoes throughout the hepatic parenchyma with evidence of mild intrahepatic ductal dilatation. The common bile duct measures 7 mm. Multiple ultrasonographic images of the gallbladder show multiple mobile echogenic foci consistent with choleliths. There is mild diffuse gallbladder wall thickening but no evidence of pericholecystic edema. No gross pancreatic or right kidney abnormality was noted. IMPRESSION: 1. Diffuse fatty infiltration of the liver. 2. Mild intrahepatic ductal dilatation with a common bile duct upper limits of normal. 3. Cholelithiasis. Signed by Doyle Gleason DO 01/23/2017 04:07 P
[2017-01-23] MEDS ORDERED: HYDROmorphone HCL 1 MG/ML SYRINGE (J1170) IV PRN ×2 (09:45)
[2017-01-23 10:57] LABS: ALBUMIN/GLOBULIN RATIO 0.79 (1.00-1.93); ALKALINE PHOSPHATASE 76 U/L (45-117); ALT/SGPT 44 U/L (12-78); AST/SGOT 35 U/L (15-37); BILIRUBIN,DIRECT 0.2 MG/DL (0.0-0.2); BILIRUBIN,TOTAL 0.6 MG/DL (0.2-1.0); TOTAL PROTEIN 6.8 GM/DL (6.4-8.2)
[2017-01-23] MEDS ORDERED: PROMETHAZINE INJ 25 MG/ML VIAL (J2550) IM PRN (11:45)
[2017-01-23 14:00] VITALS: BP 145/82
--- NOTE | 2017-01-23 14:39 | IPN ---
DATE: 01/23/2017 The patient is complaining of pain this morning which shows no relief with a small dose of Dilaudid. Last night he slept well. He has not tolerated a diet or liquids yesterday. He is currently nothing by mouth and would like to try chips again. Daughter is at bedside. Temperature 96.8, pulse 92, respiratory rate 18, blood pressure 136/63, 96% on room air. Intake and output notable for a positive fluid balance of 650. No bowel movements noted yesterday. Weight is 73.4 kg. Is awake, appropriately interactive, pleasantly conversant, good historian. Mucous membranes are moist. Neck is supple. No elevation in jugular venous pressure (JVP). Breathing is symmetrical, somewhat diminished in the bases. I:E ratio is 1:3. No wheezes, rales, or rhonchi. Speaking in complete sentences, no accessory muscle use. Heart is in a regular rate and rhythm. Normal S1, S2. There is no palpable radial pulse on the right, but there is on the left. Abdomen is somewhat distended, tympanic, but nontender to deep palpation. Hyperactive bowel sounds. No significant lower extremity edema. Some minimal to trace ankle edema perhaps. White cell count 8.6, hemoglobin 9.1, platelets of 523. BUN 15, creatinine 1.17. LFTs within normal limits, lipase within normal limits, lactic acid is pending. Gallbladder ultrasound shows diffuse fatty infiltration of the liver, mild intrahepatic ductal dilatation with the common bile duct in the upper limits of normal, cholelithiasis. My assessment is as follows: This is a 81-year-old with suspected diverticulitis. Plan is as follows: 1. The patient has diverticulitis. He has been treated with Cipro and Flagyl. I did personally review the CT scan with the radiologist. Certainly there is no marked finding of diverticulitis. Dr. Mccoy has been consulted and plans to see the patient today, I did touch base with him this morning. 2. The patient has coronary artery disease and is currently refusing his Coreg, Zocor, and Imdur, which I have encouraged him to take. No chest pain or shortness of breath. 3. The patient has hypertension. 4. The patient has polymyalgia rheumatica. Continue on his low dose of steroids. 5. The patient has chronic obstructive pulmonary disease (COPD). 6. The patient has atrial fibrillation. INR is supratherapeutic. Holding his Coumadin today. This is most likely related to antibiotic use and poor oral intake. 7. Case discussed with family at bedside.
[2017-01-23 22:00] VITALS: BP 127/60
[2017-01-24] MEDS: metroNIDAZOLE 500 MG in APPROPRIATE DILUENT 1 EA IV SCH ×2 (00:58→09:15)
[2017-01-24] MEDS: CIPROFLOXACIN 200 MG in APPROPRIATE DILUENT 1 EA IV SCH (02:18)
[2017-01-24] MEDS: NS 1,000 ML IV SCH (02:18)
[2017-01-24 06:00] VITALS: BP 140/62
[2017-01-24 06:39] LABS: MEAN CORPUSCULAR HEMOGLOBIN 34.9 pg (27.0-33.0); MEAN CORPUSCULAR HGB CONC 33.8 g/dl (32.0-36.5); MEAN CORPUSCULAR VOLUME 103.2 fl (80.0-96.0); RED CELL DISTRIBUTION WIDTH 15.8 % (11.5-14.5); WHITE BLOOD COUNT 6.8 K/mm3 (4.0-10.0)
[2017-01-24 06:44] LABS: INR 2.75
[2017-01-24 06:53] LABS: ALBUMIN 2.8 GM/DL (3.2-5.2); ANION GAP 9 MEQ/L (8-16); BLOOD UREA NITROGEN 14 MG/DL (7-18); CARBON DIOXIDE LEVEL 21 MEQ/L (21-32); CHLORIDE LEVEL 111 MEQ/L (98-107); CREATININE FOR GFR 1.07 MG/DL (0.70-1.30); GLOMERULAR FILTRATION RATE > 60.0 (>35); GLUCOSE, FASTING 89 MG/DL (83-110); POTASSIUM SERUM 3.6 MEQ/L (3.5-5.1); SODIUM LEVEL 141 MEQ/L (136-145)
[2017-01-24] MEDS: ADVAIR DISKUS 250/50 INH PWD INH SCH ×2 (08:27→21:31)
[2017-01-24] MEDS: ONDANSETRON 4 MG TAB (S0181) PO PRN (09:13)
[2017-01-24] MEDS: OMEPRAZOLE 20 MG CAP PO SCH (09:14)
[2017-01-24] MEDS: MULTIVITAMINS/MINERALS THERAP 1 TAB PO SCH (09:14)
[2017-01-24] MEDS: predniSONE 5 MG TAB PO SCH (09:14)
[2017-01-24] MEDS: SIMVASTATIN 20 MG TAB PO SCH (09:14)
[2017-01-24] MEDS: ISOSORBIDE MON. (IMDUR) 30 MG XR TAB PO SCH (09:15)
[2017-01-24] MEDS: CARVedilol 12.5 MG TAB PO SCH ×2 (09:15→20:07)
[2017-01-24 14:00] VITALS: BP 155/70
--- NOTE | 2017-01-24 14:44 | IPN ---
DATE OF SERVICE: 01/24/2017 Mr. Paige is feeling much better this morning. I did talk a little bit with his daughter. Apparently, there has been some discord at home, and it has been quite emotionally draining for the patient. He is not having any pain. He would like to advance his diet today. He has not used any pain medications. Temperature 98.4, pulse 79, respiratory rate 16, blood pressure 140/62, 97% on room air. One bowel movement thus far today. He is awake, appropriately interactive, pleasantly conversant. Breathing is symmetrical, rested. Heart is in a regular rate and rhythm. Abdomen: Soft, doughy, nontender. Abdomen soft, nontender to deep palpation. Active bowel sounds. White cell count 6.8, hemoglobin 9.1 stable, creatinine 1.07. My assessment is as follows: This is an 81-year-old with suspected diverticulitis. The plan is as follows: 1. The patient has suspected diverticulitis. Has completed an adequate course of treatment. He has been seen by Dr. Mccoy in consultation. Dictation is pending. Hold pain medications, antibiotics at this point, and advance diet. 2. The patient has coronary artery disease and is now taking his oral medications. 3. Hypertension is reasonably well controlled. 4. The patient has polymyalgia rheumatica. On his low dose of steroids. 5. The patient has chronic obstructive pulmonary disease (COPD). 6. The patient has atrial fibrillation. Is somewhat regular on examination. International normalized ratio (INR) is therapeutic. Will restart Coumadin today. 7. The patient is suspected to be depressed. Was unable to discuss treatment of depression adequately with him today, as there were a number of family members in the room. Will look to readdress this. He is hoping to have a pastoral care visit today, as well.
[2017-01-24] MEDS: WARFARIN SOD 2.5 MG TAB PO SCH (16:55)
[2017-01-24 22:00] VITALS: BP 124/51
[2017-01-25 06:00] VITALS: BP 112/57
--- NOTE | 2017-01-25 06:14 | CR ---
DATE OF CONSULTATION: 01/23/2017 REASON FOR CONSULTATION: Abdominal pain. HISTORY OF THE PRESENT ILLNESS: The patient is a very pleasant, 81-year-old man who was admitted at [facility] on 01/20/2017 for treatment of abdominal pain. The patient reported that back on about 01/17/2017 or 2016 he had developed some lower abdominal pain with some nausea and vomiting. He was seen in the emergency department at [facility] reportedly on 01/18/2017. A CT scan was interpreted as showing diverticulitis. He was started on some oral ciprofloxacin and Flagyl and discharged home, but returned to the emergency room (ER) and was admitted there for treatment. He improved with inpatient intravenous (IV) antibiotics and was subsequently again discharged on oral medications. However, after return home, he tried taking a limited diet and immediately developed some nausea and vomiting and returned to [facility] for further evaluation and treatment. He had a repeat CT scan at that point that did not confirm definite diverticulitis. He was noted to have some cholelithiasis without evidence for acute cholecystitis. There was a large simple cyst in the left kidney as well as some atherosclerosis. Sigmoid diverticulosis was noted. The radiologist at that time also suggested some possible bowel wall thickening in the cecum. The patient was admitted and treated based on his previous diagnosis of diverticulitis. Ciprofloxacin and Flagyl were continued. In the hospital, he reported pain that waxed and waned. He indicated there were times when it resolved completely, but then times when it became effectively unbearable and he required Dilaudid for pain relief. Because of his ongoing pain, I was asked to evaluate the patient as to the etiology and the need for further evaluation or treatment. MEDICATIONS: The patient's medications include: - ciprofloxacin 200 mg intravenously every 12 hours - Flagyl 500 mg intravenously every 8 hours - He is receiving Coumadin 2.5 mg by mouth daily. - simvastatin 20 mg by mouth daily - Advair Diskus 250/50 one puff twice daily - prednisone 5 mg by mouth daily - omeprazole 20 mg by mouth daily - multivitamin daily - isosorbide mononitrate 30 mg by mouth daily - Coreg 12.5 mg by mouth twice daily - as needed Tylenol, Zofran or Phenergan - He also has an order for Dilaudid 0.2 or 0.4 mg intravenously as needed for pain. ALLERGIES: The patient denies any known drug allergies. His medical history is significant for atrial fibrillation. He has a history of coronary artery disease status post bypass. He has hypertension. He has a diagnosis of polymyalgia rheumatica and remains on chronic small doses of prednisone. He apparently had a previous gastrointestinal bleed while on Pradaxa. He has chronic obstructive pulmonary disease. Surgical history is significant for a coronary artery bypass grafting. He had a colonoscopy in 2012. This was done at [facility]. He has undergone tonsillectomy and appendectomy. He had a coronary catheterization in November of 2016 and apparently had a stent placed. He has had a vasectomy. REVIEW OF SYSTEMS: The patient denies any chest pain or shortness of breath. He has had no cough or wheezing. Prior to this onset of abdominal pain, he denies any prior history of diverticulitis or similar pain. He is very clear that the pain is low in the abdomen, particularly to the left in the left lower quadrant. Denies any pain in the upper abdomen. He reports no history of hepatitis, pancreatitis, jaundice or peptic ulcer disease. He has had no recent rectal bleeding or melena. He denies any significant bone or joint pains. He has no dysuria. He does report that his urinary stream is somewhat weak and he has nocturia once nightly. PHYSICAL EXAMINATION: Fit appearing older man. He is alert, oriented and cooperative. Skin is warm and dry. Sclerae are anicteric. Mucous membranes are moist. The neck is supple without palpable mass. Chest reveals scarring from previous surgery. He has a slightly irregular rhythm but is not tachycardiac. The lungs show somewhat distant breath sounds but are otherwise clear. The abdomen is flat. He has active bowel sounds. He has some vascular bruits auscultable in the epigastrium along the course of the aorta as well as down at the level of the umbilicus in both the right and left lower quadrants. These are of medium pitch and fairly short in duration. There is no palpable aneurysm. The abdomen is soft and without significant tenderness in any of the quadrants. There is no evident hernia. Extremities are without significant edema. He has palpable radial pulses bilaterally. His laboratory studies most recently showed a white count of 6.8 with a hemoglobin of 9, hematocrit of 27 and a platelet count of 506,000 on 01/24/2017. His coagulation panel on 01/24/2017 showed a PT of 29.1 seconds with an INR 2.75. His chemistry profile revealed a sodium of 141, potassium 3.6, chloride 111, CO2 of 21, BUN of 14, creatinine 1.07 and a glucose of 89. His albumin is 2.8. Imaging includes a CT scan of the abdomen and pelvis done at the time of admission late on 01/19/2017. He had a gallbladder ultrasound done on the morning of 01/23/2017, which showed some diffuse fatty infiltration of the liver with a normal-sized common bile duct and multiple mobile foci consistent with cholelithiasis. Some mild diffuse gallbladder wall thickening was evident, but there was no pericholecystic edema. IMPRESSION: 1. Abdominal pain of unclear etiology. With reported history of diverticulitis by CT scan on 01/18/2017. 2. Cholelithiasis without evidence of acute cholecystitis. 3. Atrial fibrillation. 4. Atherosclerotic coronary artery disease status post bypass. 5. Hypertension. 6. Polymyalgia rheumatica on chronic steroid treatment. 7. Personal history of gastrointestinal bleed while on Pradaxa. 8. Chronic obstructive pulmonary disease. 9. Atherosclerotic peripheral vascular disease. RECOMMENDATIONS: At this point, the etiology of this pain is not clear. Apparently on a CT scan last week the diagnosis of diverticulitis was made, though a subsequent CT about 2 days later did not show signs of diverticulitis. I had ordered the ultrasound of the gallbladder thinking that perhaps this was responsible for his pain, but he is very clear that the discomfort has been low in his abdomen or pelvis and somewhat to the left more so than the right. This would be consistent with diverticulitis. However, his report of the pain is that he has had discomfort that has waxed and waned, sometimes resolved completely and at other times basically unbearable to the point where he needed potent narcotics. This would not be considered a typical history for diverticulitis. This kind of intermittent severe pain in my mind raises the question of whether some of this could be a functional bowel issue. There have not been any other significant findings on his CT imaging to suggest the cause of his discomfort. I do think it would probably reasonable to consider discontinuing the antibiotics as overall he has had about a week of antibiotics and his recent study has not shown significant inflammatory change requiring antibiotic therapy. I would otherwise recommend continued symptomatic treatment. I think it would be reasonable to advance his diet as tolerated. The patient requested that I speak with his daughter, so after I saw him I did call her and speak to her by phone answering her questions about her father's condition. CIARA
[2017-01-25 06:43] LABS: MEAN CORPUSCULAR HEMOGLOBIN 33.9 pg (27.0-33.0); MEAN CORPUSCULAR HGB CONC 33.4 g/dl (32.0-36.5); MEAN CORPUSCULAR VOLUME 101.4 fl (80.0-96.0); RED CELL DISTRIBUTION WIDTH 15.8 % (11.5-14.5); WHITE BLOOD COUNT 6.9 K/mm3 (4.0-10.0)
[2017-01-25 06:52] LABS: ALBUMIN 2.7 GM/DL (3.2-5.2); ANION GAP 9 MEQ/L (8-16); BLOOD UREA NITROGEN 14 MG/DL (7-18); CARBON DIOXIDE LEVEL 23 MEQ/L (21-32); CHLORIDE LEVEL 112 MEQ/L (98-107); CREATININE FOR GFR 1.02 MG/DL (0.70-1.30); GLOMERULAR FILTRATION RATE > 60.0 (>35); GLUCOSE, FASTING 95 MG/DL (83-110); POTASSIUM SERUM 3.4 MEQ/L (3.5-5.1); SODIUM LEVEL 144 MEQ/L (136-145)
[2017-01-25] MEDS ORDERED: POTASSIUM CHLORIDE 10 MEQ SR TABLET PO ONE (07:15)
[2017-01-25] MEDS: ADVAIR DISKUS 250/50 INH PWD INH SCH ×2 (07:41→21:13)
[2017-01-25] MEDS: SIMVASTATIN 20 MG TAB PO SCH (08:05)
[2017-01-25] MEDS: predniSONE 5 MG TAB PO SCH (08:05)
[2017-01-25] MEDS: OMEPRAZOLE 20 MG CAP PO SCH (08:05)
[2017-01-25] MEDS: MULTIVITAMINS/MINERALS THERAP 1 TAB PO SCH (08:05)
[2017-01-25] MEDS: CARVedilol 12.5 MG TAB PO SCH ×2 (08:07→21:07)
[2017-01-25] MEDS: ISOSORBIDE MON. (IMDUR) 30 MG XR TAB PO SCH (08:07)
[2017-01-25] MEDS: LACTOBACILLUS ACIDOPHILUS CAP (BACID) PO SCH ×2 (09:59→21:06)
[2017-01-25] MEDS: SERTRALINE HCL 25 MG TABLET PO SCH (12:39)
[2017-01-25 14:00] VITALS: BP 138/73
[2017-01-25] MEDS: WARFARIN SOD 2.5 MG TAB PO SCH (17:07)
[2017-01-25 21:07] VITALS: BP 115/61
[2017-01-25 22:00] VITALS: BP 115/61
[2017-01-26 06:00] VITALS: BP 129/59
[2017-01-26 06:30] LABS: MEAN CORPUSCULAR HEMOGLOBIN 34.7 pg (27.0-33.0); MEAN CORPUSCULAR HGB CONC 33.9 g/dl (32.0-36.5); MEAN CORPUSCULAR VOLUME 102.2 fl (80.0-96.0); RED CELL DISTRIBUTION WIDTH 16.2 % (11.5-14.5); WHITE BLOOD COUNT 6.5 K/mm3 (4.0-10.0)
[2017-01-26 06:48] LABS: ALBUMIN 2.7 GM/DL (3.2-5.2); ANION GAP 9 MEQ/L (8-16); BLOOD UREA NITROGEN 12 MG/DL (7-18); CALCIUM LEVEL 7.9 MG/DL (8.8-10.2); CARBON DIOXIDE LEVEL 23 MEQ/L (21-32); CHLORIDE LEVEL 110 MEQ/L (98-107); CREATININE FOR GFR 0.93 MG/DL (0.70-1.30); GLOMERULAR FILTRATION RATE > 60.0 (>35); GLUCOSE, FASTING 95 MG/DL (83-110); PHOSPHORUS LEVEL 2.1 MG/DL (2.5-4.9); POTASSIUM SERUM 3.4 MEQ/L (3.5-5.1); SODIUM LEVEL 142 MEQ/L (136-145)
[2017-01-26] MEDS: ADVAIR DISKUS 250/50 INH PWD INH SCH (08:12)
[2017-01-26] MEDS ORDERED: POTASSIUM CHLORIDE 10 MEQ SR TABLET PO ONE (09:00)
[2017-01-26] MEDS ORDERED: SERT25TA PO (09:03)
[2017-01-26] MEDS ORDERED: RISATAB3 PO (09:03)
[2017-01-26] MEDS: predniSONE 5 MG TAB PO SCH (09:17)
[2017-01-26] MEDS: OMEPRAZOLE 20 MG CAP PO SCH (09:17)
[2017-01-26] MEDS: LACTOBACILLUS ACIDOPHILUS CAP (BACID) PO SCH (09:17)
[2017-01-26] MEDS: ISOSORBIDE MON. (IMDUR) 30 MG XR TAB PO SCH (09:18)
[2017-01-26] MEDS: SERTRALINE HCL 25 MG TABLET PO SCH (09:18)
[2017-01-26] MEDS: SIMVASTATIN 20 MG TAB PO SCH (09:18)
[2017-01-26] MEDS: CARVedilol 12.5 MG TAB PO SCH (09:18)
[2017-01-26] MEDS: MULTIVITAMINS/MINERALS THERAP 1 TAB PO SCH (09:18)
--- NOTE | 2017-01-27 09:44 | DSES ---
DATE OF ADMISSION: 01/20/2017 DATE OF DISCHARGE: 01/26/2017 SPECIALISTS INVOLVED IN HIS CARE: Include Dr. Mccoy. No complications during his stay. No procedures performed during his stay. DISCHARGE DIAGNOSES: 1. Diverticulitis. 2. Coronary artery disease. 3. Hypertension. 4. Polymyalgia rheumatica. 5. Chronic obstructive pulmonary disease (COPD). 6. Atrial fibrillation. 7. Suspected depression. SUMMARY OF HIS PRESENTATION: This is an 81-year-old who presented with abdominal pain. He had been recently admitted, discharged and released from [facility]. He was unable to tolerate oral medications at home, returned to [facility], and was continued on treatment for suspected diverticulitis. Imaging showed improved findings on CT scan suggesting diverticulosis instead of diverticulitis. He was continued on the course. His diet was advanced. He was assessed for the possibility of depression and started on a dose of Zoloft. There were several consultations with the patient and family about home social stressors. The plan is to discharge him home with close followup with his family, Dr. Mckeon, his primary care provider, and suggested the possibility of outpatient counseling which is available through his pentecostalism. Temperature is 99.2, pulse 92, respiratory rate 20, blood pressure 129/59, 95% on room air. He is awake, alert, pleasantly conversant. Breathing is symmetrical and rested. Heart is in a regular rate and rhythm. Abdomen is soft, doughy, nontender. Active bowel sounds. DISCHARGE INSTRUCTIONS: Include the followin. Followup with Dr. Mckeon within one week. 2. Diet and activity as tolerated. DISCHARGE MEDICATIONS: - continue probiotic one tablet by mouth twice a day, given a 30-day supply - started on Zoloft 20 mg by mouth daily #30 - Coreg 12.5 mg by mouth twice a day - Imdur ER 30 mg by mouth daily - multivitamin tablet daily - sublingual nitroglycerin as needed - omeprazole 20 mg by mouth daily - prednisone 5 mg by mouth daily which is a chronic dose - prostate supplement as deemed necessary - Advair 250/50 inhaled twice a day - simvastatin 20 mg by mouth daily - Coumadin 2.5 mg by mouth daily
== END 2017-01-26 10:29 | disposition home or self-care (01) | DRG 392 ==
LOC: M ED 20:43 → M ED INP 01-20 01:04 → M MSPAV 01-20 01:44
PROVIDERS: ADMIT Internal Medicine Nephrology; ATTEND Internal Medicine
DX: K57.32 Diverticulitis of large intestine without perforation or abscess without bleeding (principal); N17.9 Acute kidney failure, unspecified; I48.2 Chronic atrial fibrillation; I10 Essential (primary) hypertension; D64.9 Anemia, unspecified; I25.10 Atherosclerotic heart disease of native coronary artery without angina pectoris; M35.3 Polymyalgia rheumatica; F32.9 Major depressive disorder, single episode, unspecified; I70.209 Unspecified atherosclerosis of native arteries of extremities, unspecified extremity; K80.20 Calculus of gallbladder without cholecystitis without obstruction; R63.4 Abnormal weight loss; J44.9 Chronic obstructive pulmonary disease, unspecified; Z95.1 Presence of aortocoronary bypass graft; Z88.8 Allergy status to other drugs, medicaments and biological substances; Z79.01 Long term (current) use of anticoagulants; Z79.52 Long term (current) use of systemic steroids; Z79.899 Other long term (current) drug therapy; Z87.891 Personal history of nicotine dependence

== ENCOUNTER 2018-06-19 08:43 | Day surgery (SDC) | payer OTHER ==
[~2018-06-19 08:43] MED LIST: ACETAMINOPHEN 325 MG TAB PO; LIDOCAINE 2% INJ 100 MG/5 ML SDV (FOR ANES.) As Ordered; MIDAZOLAM INJ 2 MG/2 ML VIAL (J2250) As Ordered; ONDANSETRON 4MG/2ML VIAL (J2405) As Ordered; PHENYLEPHRINE HCL 10 % OPHTH. SOL 5ML OS; PROPARACAINE 0.5% OPHTH SOL 15ML OS; PROPOFOL 200 MG/20 ML VIAL As Ordered; ROCURONIUM BROMIDE 50 MG/5 ML VIAL As Ordered; dexameTHASONE 4 MG/ML 1ML VIAL (J1100) As Ordered; fentaNYL 250 MCG/5 ML INJECTION (J3010) As Ordered
[2018-06-19] MEDS ORDERED: OFLOXACIN 0.3 % (OCUFLOX) OPTH SOL 5ML As Ordered (08:51)
[2018-06-19] MEDS ORDERED: TROPICAMIDE 1% OPHTH SOLN 2ML As Ordered (08:51)
[2018-06-19] MEDS ORDERED: CYCLOPENTOLATE 2% OPHTH SOLN 2ML BTL As Ordered (08:51)
[2018-06-19] MEDS ORDERED: PHENYLEPHRINE 2.5% OPHTH SOL 2ML As Ordered (08:52)
[2018-06-19] MEDS: PHENYLEPHRINE 2.5% OPHTH SOL 2ML OS (09:22)
[2018-06-19] MEDS: OFLOXACIN 0.3 % (OCUFLOX) OPTH SOL 5ML OS (09:22)
[2018-06-19] MEDS: LIDOCAINE 3.5 % 1ML OPHTH TOPICAL GEL OU (09:23)
[2018-06-19] MEDS: TROPICAMIDE 1% OPHTH SOLN 2ML OS (09:23)
[2018-06-19] MEDS: CYCLOPENTOLATE 2% OPHTH SOLN 2ML BTL OS (09:24)
[2018-06-19] MEDS ORDERED: MIDAZOLAM INJ 2 MG/2 ML VIAL (J2250) As Ordered (10:37)
[2018-06-19] MEDS ORDERED: fentaNYL 100 MCG/2 ML INJECTION (J3010) As Ordered (10:37)
[2018-06-19] MEDS: BALANCED SALT IRRIGATION SOLUTION 500ML BAG (FOR OR EYE MACHINE) As Ordered (10:43)
[2018-06-19] MEDS: POVIDONE-IODINE 5% OPHTH PREP SOL 30ML As Ordered (10:43)
[2018-06-19] MEDS: HEALON DUET (HEALON 10MG/ML 0.55ML & HEALON ENDOCOAT 30MG/ML 0.85ML) As Ordered (10:43)
[2018-06-19] MEDS: LIDOCAINE 1% SDV 5 ML VIAL As Ordered (10:43)
[2018-06-19] MEDS: CEFUROXIME 1MG/0.1ML INTRACAMERAL INJ As Ordered (10:43)
[2018-06-19] MEDS: KETOROLAC 0.5% OPHTH SOLN OS (11:15)
[2018-06-19] MEDS ORDERED: ONDANSETRON 4MG/2ML VIAL (J2405) IV (11:15)
[2018-06-19] MEDS ORDERED: TRIMETHOBENZAMIDE 300 MG CAP PO (11:15)
[2018-06-19] MEDS: AcetaZOLAMIDE 500 MG ER CAP PO (11:16)
== END 2018-06-19 11:25 | disposition home or self-care (01) ==
LOC: M SDC 08:43
DX: H25.12 Age-related nuclear cataract, left eye (principal); I48.91 Unspecified atrial fibrillation; I25.2 Old myocardial infarction; I25.10 Atherosclerotic heart disease of native coronary artery without angina pectoris; I10 Essential (primary) hypertension; Z79.51 Long term (current) use of inhaled steroids; Z79.52 Long term (current) use of systemic steroids
CPT/HCPCS: 66984

== ENCOUNTER → 2018-07-10 | Outpatient (REF) | payer OTHER ==
[2018-07-10 13:47] LABS: SLIDE REVIEW Report; SOURCE PERIPHERAL SMEAR
[2018-07-10 13:48] LABS: REASON FOR REVIEW RBC MORPHOLOGY
[2018-07-10 14:25] LABS: FERRITIN 109 NG/ML (26-388); IMMUNOGLOBULIN G 1060 MG/DL (681-1648); IMMUNOGLOBULIN M 86 MG/DL (40-230); IRON (FE) 132 UG/DL (65-175); PERCENT SATURATION 44.3 % (19.7-50.0); TOTAL IRON BINDING CAPACITY 298 UG/DL (250-450)
[2018-07-11 11:29] LABS: ALPHA-1-GLOBULIN % 4.9 % (2.9-4.9); ALPHA-1-GLOBULINS 0.34 GM/DL (0.17-0.41); ALPHA-2-GLOBULINS 0.64 GM/DL (0.42-0.99); ALPHA-2-GLOBULINS % 9.1 % (7.1-11.8); BETA-1-GLOBULINS % 5.7 % (4.7-7.2); BETA-2-GLOBULINS 0.32 GM/DL (0.19-0.55); BETA-2-GLOBULINS % 4.5 % (3.2-6.5); GAMMA GLOBULIN % 15.8 % (11.1-18.8); GAMMA GLOBULINS 1.11 GM/DL (0.65-1.58)
[2018-07-12 09:53] LABS: BETA 2 MICROGLOBULIN 3.5 mg/L (0.6-2.4)
[2018-07-12 09:53] LABS: FREE KAPPA LIGHT CHAINS SERUM 53.7 mg/L (3.3-19.4); FREE LAMBDA LIGHT CHAINS SERUM 37.1 mg/L (5.7-26.3); KAPPA/LAMBDA RATIO SERUM 1.45 (0.26-1.65)
== END ==
LOC: M LAB REF 13:00
DX: D46.9 Myelodysplastic syndrome, unspecified (principal)
CPT/HCPCS: 83550

== ENCOUNTER 2018-07-26 12:08 | Outpatient (CLI) | payer OTHER ==
[2018-07-26] MEDS: diphenhydrAMINE 25 MG CAP PO (13:26)
[2018-07-26] MEDS: ACETAMINOPHEN TAB 650MG DOSE (2X325MG) PO (13:26)
== END 2018-07-26 20:14 | disposition home or self-care (01) ==
LOC: M OPCLI4PV 12:08 → M MSPAV 12:13 → M OPCLI4PV 20:14
DX: D46.9 Myelodysplastic syndrome, unspecified (principal); D64.9 Anemia, unspecified
CPT/HCPCS: 36430

== ENCOUNTER 2018-09-14 10:27 | Outpatient (CLI) | payer OTHER ==
[2018-09-14] MEDS: ACETAMINOPHEN TAB 650MG DOSE (2X325MG) PO (13:35)
[2018-09-14] MEDS: diphenhydrAMINE 50 MG CAP PO (13:35)
== END 2018-09-14 16:45 | disposition home or self-care (01) ==
LOC: M OPCLI5PR 10:27 → M MS5PR 10:43 → M OPCLI5PR 16:45
DX: D46.9 Myelodysplastic syndrome, unspecified (principal); D64.9 Anemia, unspecified
CPT/HCPCS: 36430

== ENCOUNTER 2018-09-27 12:04 | Outpatient (CLI) | payer OTHER ==
[~2018-09-27] VITALS: Ht 172.7 cm; Wt 72.0 kg
[~2018-09-27 12:04] MED LIST changes: -ACETAMINOPHEN 325 MG TAB PO; +ADV250INH INH; +ATIV1TAB7 PO; +CARV12.5 PO; +CIPR500T3 PO; +CORE25TA PO; +COUM1TAB17 PO; +COUM2.5T17 PO; +DIGO0.12 PO; +ISOS30TA4 PO; -LIDOCAINE 2% INJ 100 MG/5 ML SDV (FOR ANES.) As Ordered; +MAGN1TAB25 PO; +METR1TAB66 PO; -MIDAZOLAM INJ 2 MG/2 ML VIAL (J2250) As Ordered; +MULT1TAB10 PO; +NITR0.4S14 SL; +OMEP20CA3 PO; +OMEP40CA2 PO; -ONDANSETRON 4MG/2ML VIAL (J2405) As Ordered; -PHENYLEPHRINE HCL 10 % OPHTH. SOL 5ML OS; +PRED5TA PO; +PRESCAP PO; -PROPARACAINE 0.5% OPHTH SOL 15ML OS; -PROPOFOL 200 MG/20 ML VIAL As Ordered; +PROSCAP PO; +RANI150T PO; +RISATAB3 PO; -ROCURONIUM BROMIDE 50 MG/5 ML VIAL As Ordered; +SERT25TA PO; +SIMV20TA2 PO; +SIMV40TA2 PO; +SLOW160T8 PO; +VENTAER INH; +VITATAB11 PO; +VITMTA PO; +[UNRECOGNIZED DRUG - OTHER]; -dexameTHASONE 4 MG/ML 1ML VIAL (J1100) As Ordered; -fentaNYL 250 MCG/5 ML INJECTION (J3010) As Ordered; +imdur PO
[2018-09-27 12:10] VITALS: BP 133/57
[2018-09-27] MEDS ORDERED: diphenhydrAMINE 50 MG CAP PO ONE (12:45)
[2018-09-27] MEDS ORDERED: ACETAMINOPHEN TAB 650MG DOSE (2X325MG) PO ONE (12:45)
[2018-09-27 17:49] VITALS: BP 146/59
[2018-10-04] MEDS ORDERED: CARV3.12 PO (11:18)
== END 2018-09-27 17:45 | disposition home or self-care (01) ==
LOC: M INFU 12:04
PROVIDERS: ATTEND Nurse Practitioner Family
DX: D64.9 Anemia, unspecified (principal); D46.9 Myelodysplastic syndrome, unspecified
CPT/HCPCS: 36430; P9016